=== PATIENT | female | born 1950 | race Caucasian/White ===

== ENCOUNTER 2024-02-02 19:35 | Emergency (ER) | payer MEDICARE, SELFPAY ==
[2024-02-02 19:36] VITALS: BP 143/94
--- NOTE | 2024-02-02 21:40 | ED.SKININJ ---
HPI-Injury
General
Chief Complaint: Skin Surface Trauma
Source: patient
Exam Limitations: none
Time Seen by Provider: 02/02/24 21:07
History of Present Illness-Injury
Initial Injury comments:
73-year-old female presents with laceration to right ring finger she sustained today. She tripped while holding a wine glass and the glass broke and cut her finger. Last tetanus unknown. She denies numbness or tingling or loss of function. No
other complaints
Phy Exam
Physical Exam
Physical Exam:
General: Well-appearing female no acute respiratory distress
Skin: 2 cm longitudinally oriented laceration volar radial aspect right ring finger spanning the proximal and middle phalanx. This is mostly superficial without tendon or nerve involvement. There is brisk capillary refill to the finger. She has
full range of motion to the finger and good sensation to the entire finger
Course
Vital Signs
Initial and Last Documented VS:
Initial Vital Signs
Temp Pulse Resp BP Pulse Ox
98.0 F 73 16 143/94 100
02/02/24 19:36 02/02/24 19:36 02/02/24 19:36 02/02/24 19:36 02/02/24 19:36
Last Documented Vital Signs
Temp Pulse Resp BP Pulse Ox
98.0 F 73 16 143/94 100
02/02/24 19:36 02/02/24 19:36 02/02/24 19:36 02/02/24 19:36 02/02/24 19:36
MDM/Problems Addressed
Differential Diagnosis Includes:
Laceration right ring finger. This was irrigated copiously with saline solution and anesthetized with 1% lidocaine. This was then also reinspected and irrigated again with saline. The laceration was then closed with 5-0 Prolene sutures in a
simple erupted fashion. 3 sutures were required to do so. Tetanus vaccine updated. Wound care instructions were given stable for discharge
*Critical Care Note
Total Time (30-74mins, 75-104mins- exclusive of procedures): Not Applicable
ED Attending Note
-
Portions of this chart may have been created with voice recognition software.� Occasional wrong word or��sound alike� substitutions may have occurred due to the inherent limitations of voice recognition software.
Discharge Plan
Departure
Patient Disposition: Home (Routine Discharge)
Date of Disposition: 02/02/24
Time of Disposition: 21:43
Patient with high blood pressure during this ER visit?: No
Discharge Problem:
Laceration
Instructions: Laceration Repair With Stitches (DC)
Referrals:
UNKNOWN - PT DOES,NOT KNOW [Family Provider] -
Activity Restrictions/Additional Instructions:
Keep clean. Have sutures removed in 10 to 12 days. Apply antibacterial ointment daily
Interventions
Interventions:
*Risk Screen - Suicide Last Done: 02/02/24 21:10
*General Assessment Last Done: 02/02/24 19:36
*Neglect/Abuse Screening Last Done: 02/02/24 21:10
ED- Fall Risk Assessment Last Done: 02/02/24 21:10
*ED COVID-19 Vaccine History Last Done: 02/02/24 19:36
ED-Skin Assessment Last Done: 02/02/24 21:09
Discharge Date and Time
Print Language: WELSH
== END 2024-02-02 21:52 | disposition home or self-care (01) ==
LOC: EMR 19:35
PROVIDERS: EMERGENCY PHYSICIAN Emergency Medicine; FAMILY PHYSICIAN Family Medicine
DX: S61.214A Laceration without foreign body of right ring finger without damage to nail, initial encounter (principal); W25.XXXA Contact with sharp glass, initial encounter
CPT/HCPCS: 99282; 12001